=== PATIENT | female | born 1950 | race African-American/Black ===

== ENCOUNTER 2017-05-17 17:23 | Inpatient (IN) | payer OTHER, MEDICARE ==
[~2017-05-17] VITALS: Ht 185.4 cm; Wt 114.8 kg
[2017-05-17] MEDS ORDERED: LACTATED RINGERS 500 ML IV STA (18:28)
[2017-05-17] MEDS ORDERED: ONDANSETRON HCL 4MG/2ML VIAL IV STA (18:28)
[2017-05-17 19:19] LABS: MEAN CORPUSCULAR HEMOGLOBIN 28.6 pg (28.0-32.0); MEAN CORPUSCULAR VOLUME 97.1 fL (81.0-99.0); MEAN PLATELET VOLUME 9.3 fl (7.4-10.4); PLATELET 134 x1000/uL (130-400); RED BLOOD CELL COUNT 1.57 mill/uL (4.2-5.4); RED CELL DISTRIBUTION WIDTH 20.7 % (11.6-14.6)
[2017-05-17 19:21] LABS: INR 1.1; PROTHROMBIN TIME 10.9 sec (9.4-11.6)
[2017-05-17 19:24] LABS: CHLORIDE 111 mEq/L (98-107); HEMATOCRIT. 15.3 % (36.0-48.0); HEMOGLOBIN. 4.5 g/dL (12.0-16.0)
[2017-05-17 19:30] LABS: TROPONIN I < 0.02 ng/mL (0.00-0.04)
[2017-05-17 20:15] LABS: PLATELET ESTIMATE NORMAL
[2017-05-17 20:31] LABS: CLARITY URINE CLEAR (CLEAR); COLOR URINE YELLOW (YELLOW); KETONES URINE NEGATIVE (NEGATIVE); LEUKOCYTE ESTERASE URINE NEGATIVE (NEGATIVE); NITRITE URINE NEGATIVE (NEGATIVE); OCCULT BLOOD URINE NEGATIVE (NEGATIVE); PH URINE 5.5 (4.5-8.0); PROTEIN URINE NEGATIVE (NEGATIVE); SPECIFIC GRAVITY URINE 1.014 (1.005-1.030)
[2017-05-17] MEDS ORDERED: MORPHINE SULFATE 2 MG/ML CPJ (NOT FOR IM USE) IV PRN (21:30)
[2017-05-17] MEDS ORDERED: ZOLPIDEM TARTRATE 5MG TABLET PO PRN (21:30)
[2017-05-17] MEDS ORDERED: DIPHENHYDRAMINE 50MG/ML VIAL IV PRN (21:30)
[2017-05-17] MEDS ORDERED: ACETAMINOPHEN 325MG TABLET PO PRN (21:30)
[2017-05-17] MEDS ORDERED: DOCUSATE SODIUM 100MG CAPSULE PO PRN (21:30)
[2017-05-17] MEDS ORDERED: ONDANSETRON HCL 4MG/2ML VIAL IV PRN (21:30)
[2017-05-17] MEDS ORDERED: NA PHOS,M-B/NA PHOS,DI-BA ENEMA 118ML PR PRN (21:30)
[2017-05-17] MEDS ORDERED: GUAIFENESIN 200MG/10ML SUGAR FREE UDC PO PRN (21:30)
[2017-05-17] MEDS ORDERED: LORAZEPAM 0.5MG TABLET PO PRN (21:30)
[2017-05-17] MEDS ORDERED: IPRATROPIUM/ALBUTEROL 0.5-3(2.5)MG/3ML NEB INH PRN (21:30)
[2017-05-17] MEDS ORDERED: NITROGLYCERIN 0.4MG TABLET SL SL PRN (21:30)
[2017-05-17 23:10] VITALS: BP 129/50
[2017-05-18] VITALS (17 sets, daily range): BP systolic 94–146; BP diastolic 39–70
[2017-05-18] MEDS: FAMOTIDINE 20MG/2ML VIAL IV SCH ×2 (09:35→22:24)
[2017-05-18 13:27] LABS: HEMOGLOBIN. 7.4 g/dL (12.0-16.0); MEAN CORPUSCULAR HEMOGLOBIN 28.4 pg (28.0-32.0); MEAN CORPUSCULAR VOLUME 91.9 fL (81.0-99.0); MEAN PLATELET VOLUME 9.1 fl (7.4-10.4); PLATELET 131 x1000/uL (130-400); RED BLOOD CELL COUNT 2.61 mill/uL (4.2-5.4); RED CELL DISTRIBUTION WIDTH 19.2 % (11.6-14.6)
[2017-05-18 14:18] LABS: PLATELET ESTIMATE NORMAL
[2017-05-18] MEDS ORDERED: LOSA100T14 PO (14:55)
[2017-05-18] MEDS ORDERED: CHLO25TA27 PO (14:55)
[2017-05-18] MEDS ORDERED: IBRU140C PO (14:55)
[2017-05-18] MEDS: TRAMADOL 50MG TABLET PO PRN (21:20)
[2017-05-19] VITALS (13 sets, daily range): BP systolic 110–148; BP diastolic 56–71
[2017-05-19 06:18] LABS: CHLORIDE 109 mEq/L (98-107)
[2017-05-19] MEDS: TRAMADOL 50MG TABLET PO PRN (06:54)
[2017-05-19 07:12] LABS: HEMATOCRIT. 21.6 % (36.0-48.0); HEMOGLOBIN. 6.7 g/dL (12.0-16.0); MEAN CORPUSCULAR HEMOGLOBIN 28.8 pg (28.0-32.0); MEAN CORPUSCULAR VOLUME 92.7 fL (81.0-99.0); MEAN PLATELET VOLUME 9.6 fl (7.4-10.4); PLATELET 111 x1000/uL (130-400); RED BLOOD CELL COUNT 2.33 mill/uL (4.2-5.4); RED CELL DISTRIBUTION WIDTH 19.5 % (11.6-14.6)
[2017-05-19 08:27] LABS: PLATELET ESTIMATE DECREASED
[2017-05-19] MEDS: FAMOTIDINE 20MG/2ML VIAL IV SCH (09:52)
== END 2017-05-19 22:20 | disposition home or self-care (01) | DRG 812 ==
LOC: ER 17:23 → 8WST 21:08 → SUPCPDRO 21:14 → ENRESERV 21:52
PROVIDERS: ADMIT Internal Medicine; ATTEND Internal Medicine
PROC: 30233N1 Transfusion of Nonautologous Red Blood Cells into Peripheral Vein, Percutaneous Approach (ICD-10-PCS; principal; 2017-05-17)
DX: D64.81 Anemia due to antineoplastic chemotherapy (principal); C95.90 Leukemia, unspecified not having achieved remission; E44.1 Mild protein-calorie malnutrition; T45.1X5A Adverse effect of antineoplastic and immunosuppressive drugs, initial encounter; Z68.33 Body mass index [BMI] 33.0-33.9, adult
CPT/HCPCS: 36415; 71045; 80053; 80061; 81003; 83036; 84484; 85025; 85610; 86850; 86900; 86920; 87040; 87086; 93005; 93970; 96361; 96374; 99285; J3490; J7050; J7120; P9016

== ENCOUNTER 2017-07-19 10:27 | Inpatient (IN) | payer OTHER ==
[~2017-07-19] VITALS: Ht 185.4 cm; Wt 115.8 kg
[2017-07-19] VITALS (8 sets, daily range): BP systolic 110–139; BP diastolic 40–55
[~2017-07-19 10:27] MED LIST: CHLO25TA27 PO; IBRU140C PO; LOSA100T14 PO
[2017-07-19 11:24] LABS: MEAN CORPUSCULAR HEMOGLOBIN 30.5 pg (28.0-32.0); MEAN CORPUSCULAR VOLUME 92.4 fL (81.0-99.0); PLATELET 171 x1000/uL (130-400); RED BLOOD CELL COUNT 2.17 mill/uL (4.2-5.4); RED CELL DISTRIBUTION WIDTH 23.2 % (11.6-14.6)
[2017-07-19 11:32] LABS: CHLORIDE 108 mEq/L (98-107); INR 1.1; PARTIAL THROMBOPLASTIN TIME 24.7 sec (23.4-31.0); PROTHROMBIN TIME 11.9 sec (9.4-11.6)
[2017-07-19 11:36] LABS: HEMATOCRIT. 20.1 % (36.0-48.0); HEMOGLOBIN. 6.6 g/dL (12.0-16.0)
[2017-07-19 11:39] LABS: TOTAL IRON BINDING CAPACITY 170 ug/dL (250-450)
[2017-07-19 12:13] LABS: PLATELET ESTIMATE NORMAL
[2017-07-19] MEDS ORDERED: MAGNESIUM/ALUMINUM HYDROXIDE/SIMETHICONE 30ML UDC PO PRN (13:15)
[2017-07-19] MEDS ORDERED: CLONIDINE 0.1MG TABLET PO PRN (13:15)
[2017-07-19] MEDS ORDERED: IPRATROPIUM/ALBUTEROL 0.5-3(2.5)MG/3ML NEB INH PRN (13:15)
[2017-07-19] MEDS ORDERED: ONDANSETRON HCL 4MG TABLET PO PRN (13:30)
[2017-07-19] MEDS: HYDROCODONE/ACETAMINOPHEN 5/325MG TABLET PO PRN (20:47)
[2017-07-20] VITALS (9 sets, daily range): BP systolic 110–143; BP diastolic 40–78
[2017-07-20 01:17] LABS: HEMOGLOBIN 7.3 g/dL (12.0-16.0)
[2017-07-20 06:08] LABS: CHLORIDE 110 mEq/L (98-107)
[2017-07-20 06:17] LABS: LDL CHOLESTEROL 36 mg/dL (5-100)
[2017-07-20 06:18] LABS: HDL CHOLESTEROL 30 mg/dL (40-59); T4 FREE 1.07 ng/dL (0.76-1.46)
[2017-07-20 06:50] LABS: MEAN CORPUSCULAR HEMOGLOBIN 30.3 pg (28.0-32.0); MEAN PLATELET VOLUME 9.9 fl (7.4-10.4); PLATELET 139 x1000/uL (130-400); RED BLOOD CELL COUNT 2.22 mill/uL (4.2-5.4); RED CELL DISTRIBUTION WIDTH 21.2 % (11.6-14.6)
[2017-07-20 08:07] LABS: HEMATOCRIT. 20.6 % (36.0-48.0); HEMOGLOBIN. 6.7 g/dL (12.0-16.0)
[2017-07-20 09:40] LABS: HEMATOCRIT 21.8 % (36.0-48.0); HEMOGLOBIN 7.1 g/dL (12.0-16.0)
[2017-07-20] MEDS: ACETAMINOPHEN 325MG TABLET PO PRN (12:57)
[2017-07-20] MEDS: LEVOFLOXACIN 750MG PREMIX 150 ML IV SCH ×3 (16:35→19:04)
[2017-07-20 19:45] LABS: HEMATOCRIT 23.7 % (36.0-48.0); HEMOGLOBIN 7.9 g/dL (12.0-16.0)
[2017-07-20 21:02] LABS: PLATELET ESTIMATE NORMAL
[2017-07-21 04:00] VITALS: BP 114/42
[2017-07-21] MEDS: HYDROCODONE/ACETAMINOPHEN 5/325MG TABLET PO PRN ×2 (05:47→13:05)
[2017-07-21 06:54] LABS: CLARITY URINE CLEAR (CLEAR); COLOR URINE YELLOW (YELLOW); KETONES URINE NEGATIVE (NEGATIVE); LEUKOCYTE ESTERASE URINE NEGATIVE (NEGATIVE); NITRITE URINE NEGATIVE (NEGATIVE); OCCULT BLOOD URINE NEGATIVE (NEGATIVE); PH URINE 5.5 (4.5-8.0); PROTEIN URINE NEGATIVE (NEGATIVE); SPECIFIC GRAVITY URINE 1.024 (1.005-1.030); UROBILINOGEN URINE 0.2 E.U./dL (0.2-1.0)
[2017-07-21 07:23] LABS: *AMPHETAMINES SCREEN URINE NEGATIVE (NEGATIVE); *BARBITURATES SCREEN URINE NEGATIVE (NEGATIVE); *BENZODIAZEPINES SCREEN URINE NEGATIVE (NEGATIVE)
[2017-07-21 07:24] LABS: *COCAINE SCREEN URINE NEGATIVE (NEGATIVE); CANNABINOID URINE SCREEN NEGATIVE (NEGATIVE); METHADONE URINE SCREEN NEGATIVE (NEGATIVE); OPIATES URINE SCREEN PRESUMTIVE POSITIVE (NEGATIVE); PHENCYCLIDINE URINE SCREEN NEGATIVE (NEGATIVE)
[2017-07-21 08:00] VITALS: BP 128/62
[2017-07-21 12:00] VITALS: BP 140/58
[2017-07-21] MEDS: LEVOFLOXACIN 750MG PREMIX 150 ML IV SCH (13:01)
[2017-07-21 13:09] LABS: HEMATOCRIT 22.6 % (36.0-48.0); HEMOGLOBIN 7.5 g/dL (12.0-16.0)
[2017-07-21] MEDS ORDERED: PANTOPRAZOLE SODIUM 40 MG/VIAL IV SCH (14:45)
[2017-07-21 16:00] VITALS: BP 128/71
[2017-07-21] MEDS: ACETAMINOPHEN 325MG TABLET PO PRN (18:35)
[2017-07-21 18:45] VITALS: BP 128/71
[2017-07-21 19:54] LABS: HEMATOCRIT 22.3 % (36.0-48.0); HEMOGLOBIN 7.5 g/dL (12.0-16.0)
[2017-07-21 20:19] VITALS: BP 113/67
== END 2017-07-21 20:14 | disposition home or self-care (01) | DRG 840 ==
LOC: EDBEDREQ 11:53 → ER 12:00 → ENRESERV 12:08 → 6EST 12:55 → 7WST 15:11
PROVIDERS: ADMIT Internal Medicine; ATTEND Internal Medicine
PROC: 30233N1 Transfusion of Nonautologous Red Blood Cells into Peripheral Vein, Percutaneous Approach (ICD-10-PCS; principal; 2017-07-19)
DX: C92.10 Chronic myeloid leukemia, BCR/ABL-positive, not having achieved remission (principal); I50.33 Acute on chronic diastolic (congestive) heart failure; I31.3 Pericardial effusion (noninflammatory); I11.0 Hypertensive heart disease with heart failure; E78.5 Hyperlipidemia, unspecified; R73.03 Prediabetes; M62.838 Other muscle spasm; R21 Rash and other nonspecific skin eruption; M19.90 Unspecified osteoarthritis, unspecified site; Z79.899 Other long term (current) drug therapy; Z82.49 Family history of ischemic heart disease and other diseases of the circulatory system; Z87.891 Personal history of nicotine dependence; Z90.710 Acquired absence of both cervix and uterus
CPT/HCPCS: 36415; 71045; 80053; 80061; 80305; 81003; 82270; 82962; 83540; 83550; 83605; 83690; 83880; 84439; 84443; 84484; 85014; 85018; 85025; 85044; 85610; 85730; 86850; 86900; 86920; 87040; 93005; 93306; C9113; J1956; J7050; P9016

== ENCOUNTER 2020-01-14 17:20 | Inpatient (IN) | payer BC, MEDICARE ==
[~2020-01-14] VITALS: Ht 185.4 cm; Wt 116.8 kg
[~2020-01-14 17:20] MED LIST changes: -LOSA100T14 PO; +LOSA100T32 PO
[2020-01-14] MEDS ORDERED: HYDROCODONE/ACETAMINOPHEN 5/325MG TABLET PO ONE (19:45)
[2020-01-14] MEDS ORDERED: MORPHINE SULFATE 4 MG/ML CPJ (NOT FOR IM USE) IV ONE (21:45)
[2020-01-14] MEDS ORDERED: BUPIVACAINE HCL/PF 0.25% (2.5MG/ML) 10ML INFIL ONE (22:45)
[2020-01-14] MEDS ORDERED: ONDANSETRON HCL 4MG/2ML INJ IV SCH (23:15)
[2020-01-14 23:27] LABS: CHLORIDE 109 mEq/L (98-107)
[2020-01-14] MEDS ORDERED: MORPHINE SULFATE 2 MG/ML CPJ (NOT FOR IM USE) IV SCH (23:30)
[2020-01-14 23:31] LABS: HEMATOCRIT. 26.5 % (36.0-48.0); HEMOGLOBIN. 7.7 g/dL (12.0-16.0); MEAN CORPUSCULAR HEMOGLOBIN 24.5 pg (28.0-32.0); MEAN CORPUSCULAR VOLUME 83.7 fL (81.0-99.0); PLATELET 157 x1000/uL (130-400); RED BLOOD CELL COUNT 3.16 mill/uL (4.2-5.4); RED CELL DISTRIBUTION WIDTH 24.3 % (11.6-14.6)
[2020-01-14 23:33] LABS: PHOSPHORUS 3.9 mg/dL (2.5-4.9)
[2020-01-14 23:35] LABS: INR 1.1; PARTIAL THROMBOPLASTIN TIME 25.3 sec (23.4-31.0); PROTHROMBIN TIME 11.3 sec (9.6-11.0)
[2020-01-15 00:21] LABS: ATYPICAL LYMPHOCYTES 7
[2020-01-15 00:23] LABS: PLATELET ESTIMATE NORMAL
[2020-01-15 03:10] LABS: HEMATOCRIT 27.2 % (36.0-48.0); HEMOGLOBIN 7.9 g/dL (12.0-16.0)
[2020-01-15 05:45] VITALS: BP 108/48
[2020-01-15] MEDS ORDERED: IBRU140C PO (06:58)
[2020-01-15] MEDS ORDERED: IBRU420T PO (07:16)
[2020-01-15 08:00] VITALS: BP 139/53
[2020-01-15] MEDS ORDERED: DEXT 5%/0.45% NACL KCL 20MEQ/L 1,000 ML IV SCH ×2 (09:00)
[2020-01-15] MEDS: ONDANSETRON HCL 4MG/2ML INJ IV PRN ×2 (09:06→13:30)
[2020-01-15] MEDS: PANTOPRAZOLE SODIUM 40 MG/VIAL IV SCH (09:06)
[2020-01-15] MEDS: MORPHINE SULFATE 2 MG/ML CPJ (NOT FOR IM USE) IV PRN ×4 (09:08→21:13)
[2020-01-15] MEDS: DEXT 5%/0.45% NACL 1000ML 1,000 ML IV SCH (11:36)
[2020-01-15 12:00] VITALS: BP 122/83
[2020-01-15] MEDS ORDERED: MAGNESIUM 2 G PREMIX 50 ML IV SCH (13:00)
[2020-01-15 13:18] LABS: HEMATOCRIT. 30.6 % (36.0-48.0); HEMOGLOBIN. 9.1 g/dL (12.0-16.0); MEAN CORPUSCULAR HEMOGLOBIN 25.5 pg (28.0-32.0); MEAN CORPUSCULAR VOLUME 85.6 fL (81.0-99.0); MEAN PLATELET VOLUME 9.7 fl (7.4-10.4); PLATELET 149 x1000/uL (130-400); RED BLOOD CELL COUNT 3.57 mill/uL (4.2-5.4); RED CELL DISTRIBUTION WIDTH 21.5 % (11.6-14.6)
[2020-01-15 14:01] LABS: PLATELET ESTIMATE NORMAL
[2020-01-15 14:16] VITALS: BP_SYST 112; BP_SYST 122; BP_DIAS 68; BP_DIAS 83
[2020-01-15 16:00] VITALS: BP 124/58
[2020-01-15 20:00] VITALS: BP 132/69
[2020-01-15] MEDS ORDERED: ACETAMINOPHEN 325MG TABLET PO PRN (20:15)
[2020-01-15 21:46] LABS: HEMATOCRIT. 29.5 % (36.0-48.0); HEMOGLOBIN. 8.7 g/dL (12.0-16.0); MEAN CORPUSCULAR HEMOGLOBIN 25.2 pg (28.0-32.0); MEAN CORPUSCULAR VOLUME 85.6 fL (81.0-99.0); MEAN PLATELET VOLUME 10.1 fl (7.4-10.4); PLATELET 136 x1000/uL (130-400); RED BLOOD CELL COUNT 3.44 mill/uL (4.2-5.4); RED CELL DISTRIBUTION WIDTH 21.2 % (11.6-14.6)
[2020-01-15] MEDS ORDERED: PIPERACILLIN/TAZOBACTAM 3.375 G/VIAL IV SCH (22:00)
[2020-01-15] MEDS: PIPERACILLIN/TAZOBACTAM 3.375 G in DEXT 5% WATER 100 ML IV SCH (22:20)
[2020-01-15 22:43] LABS: PLATELET ESTIMATE NORMAL
[2020-01-16] VITALS: BP 103/41
[2020-01-16 00:30] VITALS: BP 151/52
[2020-01-16] MEDS: MORPHINE SULFATE 2 MG/ML CPJ (NOT FOR IM USE) IV PRN ×4 (03:17→11:20)
[2020-01-16 04:00] VITALS: BP 134/55
[2020-01-16] MEDS: PIPERACILLIN/TAZOBACTAM 3.375 G in DEXT 5% WATER 100 ML IV SCH (05:18)
[2020-01-16 07:21] LABS: HEMATOCRIT. 27.4 % (36.0-48.0); HEMOGLOBIN. 8.1 g/dL (12.0-16.0); MEAN CORPUSCULAR HEMOGLOBIN 24.8 pg (28.0-32.0); MEAN CORPUSCULAR VOLUME 84.7 fL (81.0-99.0); PLATELET 120 x1000/uL (130-400); RED BLOOD CELL COUNT 3.24 mill/uL (4.2-5.4); RED CELL DISTRIBUTION WIDTH 21.4 % (11.6-14.6)
[2020-01-16 08:00] VITALS: BP_SYST 105; BP_SYST 112; BP_DIAS 49; BP_DIAS 63
[2020-01-16] MEDS: PANTOPRAZOLE SODIUM 40 MG/VIAL IV SCH (09:17)
[2020-01-16] MEDS: DEXT 5%/0.45% NACL 1000ML 1,000 ML IV SCH (09:17)
[2020-01-16 12:21] VITALS: BP 108/48
[2020-01-16 13:36] LABS: PLATELET ESTIMATE SLIGHTLY DECREASED
[2020-01-17 09:06] LABS: IMMUNOGLOBULIN A 59 mg/dL (87-352); IMMUNOGLOBULIN G 551 mg/dL (586-1602); IMMUNOGLOBULIN M 18 mg/dL (26-217)
[2020-01-18 13:10] LABS: ALBUMIN 2.5 g/dL (2.9-4.4); ALPHA-1-GLOBULIN 0.3 g/dL (0.0-0.4); ALPHA-2-GLOBULIN 0.8 g/dL (0.4-1.0); BETA GLOBULIN 0.9 g/dL (0.7-1.3); GAMMA GLOBULINS 0.5 g/dL (0.4-1.8); GLOBULIN TOTAL 2.6 g/dL (2.2-3.9); M-SPIKE Not Observed g/dL (Not Observed); TOTAL PROTEIN SERUM 5.1 g/dL (6.0-8.5)
== END 2020-01-16 13:51 | disposition short-term general hospital (02) | DRG 542 ==
LOC: ER 17:20 → 6WST 01-15 01:38 → EDBEDREQDT 01-15 02:23 → EDBEDREQTM 01-15 02:23 → EDBEDREQ 01-15 02:23 → ENRESERV 01-15 04:12
PROVIDERS: ADMIT Internal Medicine; ATTEND Internal Medicine
PROC: 30233N1 Transfusion of Nonautologous Red Blood Cells into Peripheral Vein, Percutaneous Approach (ICD-10-PCS; principal; 2020-01-15)
DX: M84.451A Pathological fracture, right femur, initial encounter for fracture (principal); E43 Unspecified severe protein-calorie malnutrition; N17.0 Acute kidney failure with tubular necrosis; C91.10 Chronic lymphocytic leukemia of B-cell type not having achieved remission; I13.0 Hypertensive heart and chronic kidney disease with heart failure and stage 1 through stage 4 chronic kidney disease, or unspecified chronic kidney disease; D64.9 Anemia, unspecified; E11.22 Type 2 diabetes mellitus with diabetic chronic kidney disease; E66.9 Obesity, unspecified; E83.42 Hypomagnesemia; E87.8 Other disorders of electrolyte and fluid balance, not elsewhere classified; I25.10 Atherosclerotic heart disease of native coronary artery without angina pectoris; I50.9 Heart failure, unspecified; J44.9 Chronic obstructive pulmonary disease, unspecified; K44.9 Diaphragmatic hernia without obstruction or gangrene; M17.10 Unilateral primary osteoarthritis, unspecified knee; N18.9 Chronic kidney disease, unspecified; E66.01 Morbid (severe) obesity due to excess calories; M19.90 Unspecified osteoarthritis, unspecified site; E78.5 Hyperlipidemia, unspecified; R91.8 Other nonspecific abnormal finding of lung field; Z82.49 Family history of ischemic heart disease and other diseases of the circulatory system; Z90.710 Acquired absence of both cervix and uterus; Z79.899 Other long term (current) drug therapy; Z68.34 Body mass index [BMI] 34.0-34.9, adult
CPT/HCPCS: 36415; 71045; 73552; 73560; 73700; 80048; 80053; 82784; 83010; 83615; 83735; 83880; 84100; 84155; 84165; 84443; 85014; 85018; 85025; 86334; 86850; 86880; 86900; 86920; 87426; 93005; 99285; C9113; J2270; J2405; J2543; J3475; J3490; J7040; J7060; P9016